=== PATIENT | male | born 1960 | race Caucasian/White ===

== ENCOUNTER 2018-11-11 18:26 | Emergency (ER) | payer MEDICARE, BC ==
[~2018-11-11] VITALS: Ht 175.3 cm; Wt 97.5 kg
[2018-11-11] MEDS ORDERED: MORPHINE SULFATE 4 MG/ML SYR/VIAL IV ONE (18:45)
[2018-11-11] MEDS ORDERED: ONDANSETRON HCL 4 MG/2 ML VIAL IV ONE (18:45)
[2018-11-11 19:26] LABS: Basophils # (auto) 0 uL; Basophils % (auto) 0.3 % (0.0-2.0); Eosinophils # (auto) 0 uL; Eosinophils % (auto) 0.1 % (0.0-7.0); Hemoglobin 16.3 g/dL (13.5-17.5); Lymphocytes # (auto) 1.2 uL; Lymphocytes % (auto) 9.5 % (10.0-50.0); Mean Corpuscular Hemoglobin 32.2 pg (28.0-32.0); Mean Corpuscular Hgb Conc. 33.4 g/dL (32.0-36.0); Mean Corpuscular Volume 96.6 fL (80.0-100.0); Monocytes # (auto) 0.7 uL; Monocytes % (auto) 5.7 % (0.0-12.0); Neutrophils # (auto) 10.7 uL; Neutrophils % (auto) 84.4 % (37.0-80.0); Platelet Count (auto) 226 10^3/uL (140-450); Red Blood Cells 5.07 10^6/uL (4.5-5.90); Red Cell Distribution Width 14.5 % (11.8-14.3); White Blood Cell 12.7 10^3/uL (4.4-10.8)
[2018-11-11 19:43] LABS: Alanine Aminotransferase 32 U/L (16-61); Albumin 4.6 g/dL (3.4-5.0); Anion Gap 9 (5-15); Blood Urea Nitrogen 14 mg/dL (7-18); Calcium 9.3 mg/dL (8.5-10.1); Carbon Dioxide 26 mmol/L (21-32); Chloride 105 mmol/L (98-107); Glucose 139 mg/dL (74-106); Magnesium 2.4 mg/dL (1.6-2.6); Potassium 3.4 mmol/L (3.5-5.1); Sodium 140 mmol/L (136-145)
[2018-11-11 19:48] LABS: Alkaline Phosphatase 137 U/L (45-117); Aspartate Aminotransferase 24 U/L (15-37); BUN/Creatinine Ratio 13.6; Bilirubin, Total 0.3 mg/dL (0.2-1.0); GFR African American 96 mL/min; GFR Non-African American 79 mL/min; Total Protein 7.8 g/dL (6.4-8.2)
[2018-11-11] MEDS ORDERED: OXY5T PO (21:18)
[2018-11-11] MEDS ORDERED: MORP30TA PO (21:18)
[2018-11-11] MEDS ORDERED: PREG150C PO (21:18)
[2018-11-11] MEDS ORDERED: SERT100T PO (21:18)
[2018-11-11 23:05] LABS: INR 1.09 (0.9-1.15)
[2018-11-11] MEDS ORDERED: SODIUM CHLORIDE 0.9% 1,000 ML IV ONE (23:15)
[2018-11-11] MEDS ORDERED: diphenhdrAMINE HCL 50 MG/1 ML VL IV ONE (23:30)
[2018-11-12 00:15] LABS: Alcohol, Urine < 3.0 mg/dL (0-5); Barbiturate Scree,Urine NEGATIVE (NEGATIVE); Benzodiazephine Screen, Urine NEGATIVE (NEGATIVE); Cannabinoid Screen, Urine NEGATIVE (NEGATIVE); Cocaine Screen, Urine NEGATIVE (NEGATIVE); Opiate Scree,Urine POSITIVE (NEGATIVE); Phencyclidine Screen, Urine NEGATIVE (NEGATIVE)
[2018-11-12 00:23] LABS: Amphetamine Screen, Urine NEGATIVE (NEGATIVE)
[2018-11-12 01:00] VITALS: BP 126/71
== END 2018-11-12 01:40 | disposition home or self-care (01) ==
LOC: ER 18:26 → EDBD 18:26 → ER 11-12 01:40
DX: R07.89 Other chest pain (principal); I50.9 Heart failure, unspecified; Z79.899 Other long term (current) drug therapy
CPT/HCPCS: 36415; 71045; 80053; 80307; 83735; 83880; 84443; 84484; 85025; 85379; 85610; 85730; 93005; 94761; 96374; 96375; 99284; J1200; J2270; J7030; J2405